=== PATIENT | male | born 2000 | race Hispanic/Latino ===

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

== ENCOUNTER 2019-06-13 12:05 | Emergency (ER) | payer SELFPAY ==
[~2019-06-13] VITALS: Ht 185.4 cm; Wt 88.4 kg
[~2019-06-13 12:05] MED LIST: ONDA4TAB11 PO
[2019-06-13 12:35] LABS: BASOPHILS % (AUTO) 1 % (0-10); EOSINOPHILS # (AUTO) 0.4 10^3/uL (0.0-0.3); EOSINOPHILS % (AUTO) 6 % (0-10); HEMATOCRIT 44 % (40-54); HEMOGLOBIN 15.1 G/DL (13.3-17.7); LYMPHOCYTES # (AUTO) 1.7 X 10^3 (1.0-4.0); LYMPHOCYTES % (AUTO) 29 % (12-44); MEAN CORPUSCULAR HEMOGLOBIN 30 PG (25-34); MEAN CORPUSCULAR HGB CONC 34 G/DL (32-36); MEAN CORPUSCULAR VOLUME 87 FL (80-99); MONOCYTES # (AUTO) 0.6 X 10^3 (0.0-1.0); MONOCYTES % (AUTO) 9 % (0-12); NEUTROPHILS # (AUTO) 3.3 X 10^3 (1.8-7.8); NEUTROPHILS % (AUTO) 55 % (42-75); PLATELET COUNT 190 10^3/uL (130-400); RED CELL DISTRIBUTION WIDTH 13.5 % (10.0-14.5); WHITE BLOOD COUNT 5.9 10^3/uL (4.3-11.0)
--- NOTE | 2019-06-13 12:37 | ED Cough/URI ---
General Chief Complaint: Cough/Cold/Flu Symptoms Stated Complaint: SOA;COUGH History of Present Illness Date Seen by Provider: Jun 13, 2019 Time Seen by Provider: 12:05 Initial Comments 18-year-old male presents with complaints of dry cough, congestion and wheezing. He denies any fever. Symptoms began yesterday morning. He works at [employer], no known COVID risk or travel, but he has been socializing with friends every 1-2 days. No known friends with fever, SOA or cough. No history of chronic Resp health complaints. He does smoke cigars 2-3 times a week. Timing/Duration: yesterday Severity/Quality: dry cough Prior Episodes/Possible Cause: no prior episodes Associated Symptoms: cough, nasal congestion, wheezing Allergies and Home Medications Allergies Coded Allergies: No Known Drug Allergies (Unverified , 12/20/18) Home Medications Albuterol Sulfate 18 Gm Hfa.aer.ad, 1-2 PUFF INH Q4H PRN for COUGH Prescribed by: PALLAVI CAMARA on 06/13/19 1315 Ondansetron 4 Mg Tab.rapdis, 4 MG PO Q6H PRN for NAUSEA/VOMITING Prescribed by: FLORINDA FISCHER on 12/20/182036 Patient Home Medication List Home Medication List Reviewed: Yes Review of Systems Review of Systems Constitutional: no symptoms reported, see HPI; No fever, No malaise, No weakness Respiratory: see HPI, cough, wheezing Cardiovascular: no symptoms reported, see HPI Gastrointestinal: no symptoms reported, see HPI All Other Systems Reviewed Negative Unless Noted: Yes Past Zsmqoge-Mtmcmm-Wyxhem Hx Past Med/Social Hx: Reviewed Nursing Past Med/Soc Hx Patient Social History Drug of Choice: MJ Type Used: Cigars 2nd Hand Smoke Exposure: Yes Recent Hopitalizations: No Seasonal Allergies Seasonal Allergies: No Past Medical History Surgeries: Yes (hernia, 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 0oz. [id number]; 26.00 BMI Method:Actual General Appearance: WD/WN, no apparent distress Eyes: Bilateral Eye Normal Inspection, Bilateral Eye PERRL, Bilateral Eye EOMI HEENT: PERRL/EOMI, normal ENT inspection, TMs normal, pharynx normal Neck: non-tender, full range of motion, supple, normal inspection Respiratory: chest non-tender, lungs clear, normal breath sounds, no respiratory distress Cardiovascular: normal peripheral pulses, regular rate, rhythm Gastrointestinal: normal bowel sounds, non tender, soft; No rebound, No tende rness Extremities: normal range of motion, non-tender, normal inspection, normal capillary refill Neurologic/Psychiatric: no motor/sensory deficits, alert, normal mood/affect, oriented x 3 Skin: normal color, warm/dry Progress/Results/Core Measures Suspected Sepsis SIRS Temperature: Pulse: Respiratory Rate: Laboratory Tests 06/13/19 12:29: White Blood Count 5.9 Blood Pressure / Mean: Laboratory Tests 06/13/19 12:29: Creatinine 1.01, Platelet Count 190, Total Bilirubin 0.3 Results/Orders Lab Results Laboratory Tests Test 06/13/19 12:29 06/13/19 13:15 Range/Units White Blood Count 5.9 4.3-11.0 10^3/uL Red Blood Count 5.06 4.35-5.85 10^6/uL Hemoglobin 15.1 13.3-17.7 G/DL Hematocrit 44 40-54 % Mean Corpuscular Volume 87 80-99 FL Mean Corpuscular Hemoglobin 30 25-34 PG Mean Corpuscular Hemoglobin Concent 34 32-36 G/DL Red Cell Distribution Width 13.5 10.0-14.5 % Platelet Count 190 130-400 10^3/uL Mean Platelet Volume 10.0 7.4-10.4 FL Neutrophils (%) (Auto) 55 42-75 % Lymphocytes (%) (Auto) 29 12-44 % Monocytes (%) (Auto) 9 0-12 % Eosinophils (%) (Auto) 6 0-10 % Basophils (%) (Auto) 1 0-10 % Neutrophils # (Auto) 3.3 1.8-7.8 X 10^3 Lymphocytes # (Auto) 1.7 1.0-4.0 X 10^3 Monocytes # (Auto) 0.6 0.0-1.0 X 10^3 Eosinophils # (Auto) 0.4 H 0.0-0.3 10^3/uL Basophils # (Auto) 0.0 0.0-0.1 10^3/uL Erythrocyte Sedimentation Rate 1 0-15 MM/HR D-Dimer <= 0.27 0.00-0.49 UG/ML Sodium Level 143 135-145 MMOL/L Potassium Level 4.2 3.6-5.0 MMOL/L Chloride Level 110 H 98-107 MMOL/L Carbon Dioxide Level 24 21-32 MMOL/L Anion Gap 9 5-14 MMOL/L Blood Urea Nitrogen 9 7-18 MG/DL Creatinine 1.01 0.60-1.30 MG/DL Estimat Glomerular Filtration Rate > 60 BUN/Creatinine Ratio 9 Glucose Level 107 H 70-105 MG/DL Calcium Level 9.3 8.5-10.1 MG/DL Corrected Calcium 8.5-10.1 MG/DL Total Bilirubin 0.3 0.1-1.0 MG/DL Aspartate Amino Transf (AST/SGOT) 20 5-34 U/L Alanine Aminotransferase (ALT/SGPT) 22 0-55 U/L Alkaline Phosphatase 58 40-136 U/L Lactate Dehydrogenase 158 125-220 U/L C-Reactive Protein High Sensitivity 0.11 0.00-0.50 MG/DL Total Protein 6.8 6.4-8.2 GM/DL Albumin 4.6 H 3.2-4.5 GM/DL Group A Streptococcus Screen NEGATIVE NEGATIVE Micro Results Microbiology 06/13/19 Influenza Types A,B Antigen (MARY) - Final, Complete My Orders Orders - PALLAVI CAMARA Chest 1 View, Ap/Pa Only (06/13/19 12:17) Cbc With Automated Diff (06/13/19 12:17) Comprehensive Metabolic Panel (06/13/19 12:17) Ferritin (06/13/19 12:17) Fibrin Degradation Products (06/13/19 12:17) Hs C Reactive Protein (06/13/19 12:17) Erythrocyte Sedimentation Rate (06/13/19 12:17) LDH (06/13/19 12:17) Rapid Strep A Screen (06/13/19 12:17) 2019 Coronavirus Sars-Cov-2 So (06/13/19 12:59) Influenza A And B Antigens (06/13/19 12:59) Vital Signs/I&O 06/13/19 06/13/19 12:05 13:54 Temp 36.9 36.9 Pulse 72 72 Resp 16 16 B/P (MAP) 135/76 Pulse Ox 99 99 O2 Delivery Room Air Room Air Capillary Refill : Progress Note : Time: 12:05 Progress Note patient seen and evaluated, will do all testing for COVID risk. No need for O2 or MDI, no resp distress. No tylenol, as afebrile. 1300 continues to be asymptomatic. Awaiting lab results and then plan d/c. 1325 Discharge instructions and return precautions reviewed with the patient. All questions answered Diagnostic Imaging Diagonstic Imaging: Xray Plain Films/CT/US/NM/MRI: chest Comments NAME: TAWANNA MANNING [facility] REC#: [id number] PT STATUS: REG ER : 1999 PHYSICIAN: PALLAVI CAMARA ADMIT DATE: 06/13/19/ER Draft Date of Exam:06/13/19 CHEST 1 VIEW, AP/PA ONLY INDICATION: Cough. TIME OF EXAM: 12:23 p.m. COMPARISON: No prior studies are available for comparison. The heart size is normal. The pulmonary vascularity is unremarkable. The lungs are clear. No infiltrate, effusion or pneumothorax is detected. IMPRESSION: No acute cardiopulmonary process is detected. Dictated on workstation # [id number] Dict: 06/13/19 1234 Trans: 06/13/19 1241 [id number] Interpreted by: ADRIENNE MENDOZA MD Electronically signed by: Reviewed: Reviewed by Me Departure Impression Primary Impression: Cough Disposition: 01 HOME, SELF-CARE Condition: Improved Departure-Patient Inst. Decision time for Depature: 13:25 Referrals: [facility],LOCAL PHYSICIAN (PCP) Primary Care Physician Patient Instructions: COVID19 Add. Discharge Instructions: Stay at home on isolation at all times until test results are called to. Stay 6 feet away from all home members and wear a mask when not in your room. Do not go to any public locations or friend's homes. You may take Tylenol 650 mg every 6 hours as needed for fever. Increase water intake, 16 ounces every 2-3 hours when awake. You sure inhaler 2 puffs every 4-6 hours as needed for shortness of breath or wheezing. Establish care at [facility] and follow-up there if symptoms are not improving or worsen, call for appointment prior to arrival. Return to emergency department for chest pain, shortness of breath not relieved with your inhaler, fever greater than 101 not relieved by Tylenol, or new urgent health care needs. All discharge instructions reviewed with patient and/or family. Voiced understanding. Scripts Albuterol Sulfate (Ventolin Hfa) 18 Gm Hfa.aer.ad 1-2 PUFF INH Q4H PRN for COUGH, #1 INHALER 0 Refills Prov: PALLAVI CAMARA 06/13/19 Work/School Note: Work Release Form Date Seen in the Emergency Department: Jun 13, 2019 Restrictions: Need Release from Doctor Other Restrictions Listed Below: Home isolation, until testing results verified. PALLAVI CAMARA Jun 13, 2019 12:37
--- NOTE | 2019-06-13 12:42 | Diagnostic Imaging Report ---
INDICATION: Cough. TIME OF EXAM: 12:23 p.m. COMPARISON: No prior studies are available for comparison. The heart size is normal. The pulmonary vascularity is unremarkable. The lungs are clear. No infiltrate, effusion or pneumothorax is detected. IMPRESSION: No acute cardiopulmonary process is detected. Dictated by: Dictated on workstation # [id number]
[2019-06-13 12:53] LABS: ALANINE AMINOTRANSFERASE 22 U/L (0-55); ALBUMIN 4.6 GM/DL (3.2-4.5); ALKALINE PHOSPHATASE 58 U/L (40-136); BILIRUBIN,TOTAL 0.3 MG/DL (0.1-1.0); BUN/CREATININE RATIO 9; CALCIUM 9.3 MG/DL (8.5-10.1); CARBON DIOXIDE 24 MMOL/L (21-32); CHLORIDE 110 MMOL/L (98-107); CREATININE SERUM 1.01 MG/DL (0.60-1.30); GFR ESTIMATED > 60; GLUCOSE 107 MG/DL (70-105); POTASSIUM 4.2 MMOL/L (3.6-5.0); SODIUM 143 MMOL/L (135-145); TOTAL PROTEIN 6.8 GM/DL (6.4-8.2)
[2019-06-13 12:55] LABS: ERYTHROCYTE SEDIMENTATION RATE 1 MM/HR (0-15)
[2019-06-13] MEDS ORDERED: ALBU18HF2 INH (13:15)
== END 2019-06-13 13:54 | disposition home or self-care (01) ==
LOC: EDUNIT# 12:14 → ER 12:16
DX: R05 Cough (principal); F17.210 Nicotine dependence, cigarettes, uncomplicated
CPT/HCPCS: 36415; 71045; 80053; 82728; 83615; 85025; 85379; 85652; 86141; 87430; 87635; 87804

== ENCOUNTER 2021-09-23 11:57 | Emergency (ER) | payer SELFPAY ==
[~2021-09-23] VITALS: Ht 187 cm; Wt 85.0 kg
[~2021-09-23 11:57] MED LIST changes: +ALBU18HF2 INH
--- NOTE | 2021-09-23 12:36 | ED Abdominal Pain ---
General Chief Complaint: Abdominal/GI Problems Stated Complaint: ABD PAIN Source of Information: Patient Exam Limitations: No Limitations (CHRIS PICHARDO APRN) History of Present Illness Date Seen by Provider: Sep 23, 2021 Time Seen by Provider: 12:35 Initial Comments To ER with midline upper abdominal pain that he noticed this morning. He woke up with abdominal cramping and has had several episodes of loose stools. He has had nausea with no vomiting. No fevers or chills or body aches. He felt fine last night. No oral intake since yesterday. Timing/Duration: 4-6 Hours Severity/Quality: Moderate, Cramping Location: Epigastric Radiation: No Radiation Activities at Onset: None Associated Symptoms: Nausea/Vomiting (CHRIS PICHARDO APRN) Allergies and Home Medications Allergies Coded Allergies: No Known Drug Allergies (Unverified , 12/20/18) Patient Home Medication List Home Medication List Reviewed: Yes (CHRIS PICHARDO APRN) Albuterol Sulfate (Ventolin Hfa) 18 Gm Hfa.aer.ad, 1-2 PUFF INH Q4H PRN for COUGH Prescribed by: PALLAVI CAMARA on 06/13/19 1315 Ondansetron (Ondansetron Odt) 4 Mg Tab.rapdis, 4 MG PO Q6H PRN for NAUSEA/VOMITING Prescribed by: FLORINDA FISCHER on 12/20/182036 Review of Systems Review of Systems Constitutional: see HPI EENTM: No Symptoms Reported Respiratory: No Symptoms Reported Cardiovascular: No Symptoms Reported Gastrointestinal: See HPI, Abdominal Pain, Nausea Genitourinary: No Symptoms Reported Musculoskeletal: no symptoms reported Skin: no symptoms reported Psychiatric/Neurological: No Symptoms Reported Endocrine: No Symptoms Reported Hematologic/Lymphatic: No Symptoms Reported (CHRIS PICHARDO APRN) Past Eiaduzh-Xufikj-Rncewn Hx Seasonal Allergies Seasonal Allergies: No (CHRIS PICHARDO APRN) Past Medical History Surgeries: Yes (hernia, 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 0oz. 104.897426vh; 25.00 BMI Method:Actual General Appearance: WD/WN, no apparent distress HEENT: PERRL/EOMI, normal ENT inspection Respiratory: no respiratory distress, no accessory muscle use Cardiovascular: regular rate, rhythm, no murmur Gastrointestinal: normal bowel sounds, soft, tenderness Extremities: normal range of motion, non-tender Neurologic/Psychiatric: alert, normal mood/affect, oriented x 3 Skin: normal color, warm/dry (CHRIS PICHARDO APRN) Progress/Results/Core Measures Results/Orders Lab Results Laboratory Tests Test 09/23/21 12:36 Range/Units White Blood Count 10.7 4.3-11.0 10^3/uL Red Blood Count 5.04 4.30-5.52 10^6/uL Hemoglobin 15.4 13.3-17.7 g/dL Hematocrit 45 40-54 % Mean Corpuscular Volume 89 80-99 fL Mean Corpuscular Hemoglobin 31 25-34 pg Mean Corpuscular Hemoglobin Concent 34 32-36 g/dL Red Cell Distribution Width 12.9 10.0-14.5 % Platelet Count 203 130-400 10^3/uL Mean Platelet Volume 10.1 9.0-12.2 fL Immature Granulocyte % (Auto) 0 % Neutrophils (%) (Auto) 71 42-75 % Lymphocytes (%) (Auto) 18 12-44 % Monocytes (%) (Auto) 8 0-12 % Eosinophils (%) (Auto) 2 0-10 % Basophils (%) (Auto) 1 0-10 % Neutrophils # (Auto) 7.6 1.8-7.8 10^3/uL Lymphocytes # (Auto) 1.9 1.0-4.0 10^3/uL Monocytes # (Auto) 0.9 0.0-1.0 10^3/uL Eosinophils # (Auto) 0.2 0.0-0.3 10^3/uL Basophils # (Auto) 0.1 0.0-0.1 10^3/uL Immature Granulocyte # (Auto) 0.0 0.0-0.1 10^3/uL Sodium Level 141 135-145 MMOL/L Potassium Level 4.1 3.6-5.0 MMOL/L Chloride Level 106 98-107 MMOL/L Carbon Dioxide Level 23 21-32 MMOL/L Anion Gap 12 5-14 MMOL/L Blood Urea Nitrogen 15 7-18 MG/DL Creatinine 0.95 0.60-1.30 MG/DL Estimat Glomerular Filtration Rate 117 BUN/Creatinine Ratio 16 Glucose Level 95 70-105 MG/DL Calcium Level 9.8 8.5-10.1 MG/DL Corrected Calcium 8.5-10.1 MG/DL Total Bilirubin 0.6 0.1-1.0 MG/DL Aspartate Amino Transf (AST/SGOT) 27 5-34 U/L Alanine Aminotransferase (ALT/SGPT) 38 0-55 U/L Alkaline Phosphatase 57 40-136 U/L Total Protein 7.4 6.4-8.2 GM/DL Albumin 4.7 H 3.2-4.5 GM/DL Lipase 112 H 8-78 U/L (TAISHA ORTEGA MD) Vital Signs/I&O 09/23/21 09/23/21 12:25 14:01 Temp 36.4 Pulse 56 55 Resp 16 16 B/P (MAP) 140/94 (109) 122/84 Pulse Ox 98 98 (TAISHA ORTEGA MD) Departure Communication (Admissions) 1342 had quite a bit of improvement with Zofran GI cocktail and Levsin though he still has some abdominal cramping. We will do 1 dose of fentanyl then discharged home on a clear liquid diet. It did little bit (CHRIS PICHARDO APRN) Impression Primary Impression: Abdominal pain Disposition: HOME, SELF-CARE Condition: Stable Departure-Patient Inst. Decision time for Depature: 13:11 (CHRIS PICHARDO APRN) Referrals: NO,LOCAL PHYSICIAN (PCP/Family) Primary Care Physician Patient Instructions: No Instuctions Given Add. Discharge Instructions: Clear liquids only for 24 hours return to ER for any concerns such as uncontrollable nausea vomiting or severe intolerable abdominal pain. All discharge instructions reviewed with patient and/or family. Voiced understanding. Work/School Note: Work Release Form Date Seen in the Emergency Department: Sep 23, 2021 Return to Work: Sep 25, 2021 ATTENDING PHYSICIAN NOTE: I was physically present as attending physician in the emergency department during the care of this patient, but I was not directly involved in the decision making or delivery of care for this patient. (TAISHA ORTEGA MD) CHRIS PICHARDO APRN Sep 23, 2021 12:36 TAISHA ORTEGA MD Sep 25, 2021 06:48
[2021-09-23 12:39] LABS: BASOPHILS # (AUTO) 0.1 10^3/uL (0.0-0.1); BASOPHILS % (AUTO) 1 % (0-10); EOSINOPHILS # (AUTO) 0.2 10^3/uL (0.0-0.3); EOSINOPHILS % (AUTO) 2 % (0-10); HEMATOCRIT 45 % (40-54); HEMOGLOBIN 15.4 g/dL (13.3-17.7); LYMPHOCYTES # (AUTO) 1.9 10^3/uL (1.0-4.0); LYMPHOCYTES % (AUTO) 18 % (12-44); MEAN CORPUSCULAR HEMOGLOBIN 31 pg (25-34); MEAN CORPUSCULAR HGB CONC 34 g/dL (32-36); MEAN CORPUSCULAR VOLUME 89 fL (80-99); MEAN PLATELET VOLUME 10.1 fL (9.0-12.2); MONOCYTES # (AUTO) 0.9 10^3/uL (0.0-1.0); MONOCYTES % (AUTO) 8 % (0-12); NEUTROPHILS # (AUTO) 7.6 10^3/uL (1.8-7.8); NEUTROPHILS % (AUTO) 71 % (42-75); PLATELET COUNT 203 10^3/uL (130-400); WHITE BLOOD COUNT 10.7 10^3/uL (4.3-11.0)
[2021-09-23] MEDS ORDERED: ANTACID SUSP 30 ML UDC (MYLANTA) PO ONE (12:45)
[2021-09-23] MEDS ORDERED: LIDOCAINE 2% VISCOUS 15 ML UDC PO ONE (12:45)
[2021-09-23] MEDS ORDERED: ONDANSETRON 4 MG/2 ML (SDV) Z0FRAN IVP ONE (12:45)
[2021-09-23] MEDS ORDERED: LACTATED RINGERS 1,000 ML IV SCH (12:45)
[2021-09-23] MEDS ORDERED: HYOSCYAMINE 0.125 MG (LEVSIN) TAB PO ONE (12:45)
[2021-09-23 12:49] LABS: ALBUMIN 4.7 GM/DL (3.2-4.5); CHLORIDE 106 MMOL/L (98-107); POTASSIUM 4.1 MMOL/L (3.6-5.0); SODIUM 141 MMOL/L (135-145)
[2021-09-23 12:50] LABS: CALCIUM 9.8 MG/DL (8.5-10.1)
[2021-09-23 12:51] LABS: GLUCOSE 95 MG/DL (70-105)
[2021-09-23 12:52] LABS: TOTAL PROTEIN 7.4 GM/DL (6.4-8.2)
[2021-09-23 12:53] LABS: BILIRUBIN,TOTAL 0.6 MG/DL (0.1-1.0); CARBON DIOXIDE 23 MMOL/L (21-32)
[2021-09-23 12:55] LABS: ALKALINE PHOSPHATASE 57 U/L (40-136); CREATININE SERUM 0.95 MG/DL (0.60-1.30); GFR ESTIMATED 117
[2021-09-23 12:56] LABS: BUN/CREATININE RATIO 16
[2021-09-23 12:58] LABS: ALANINE AMINOTRANSFERASE 38 U/L (0-55); LIPASE 112 U/L (8-78)
[2021-09-23] MEDS ORDERED: fentaNYL INJ 100 MCG/2 ML AMP IVP ONE (13:45)
[2021-09-23 14:01] VITALS: BP 122/84
== END 2021-09-23 14:08 | disposition home or self-care (01) ==
LOC: EDUNIT# 11:57 → ER 11:58
DX: R10.13 Epigastric pain (principal); Z86.19 Personal history of other infectious and parasitic diseases
CPT/HCPCS: 36415; 80053; 83690; 85025